=== PATIENT | male | born 1960 | race Caucasian/White ===

== ENCOUNTER → 2019-06-02 | Outpatient (CLI) | payer OTHER ==
--- NOTE | 2019-06-02 10:57 | MR ---
EXAMINATION TYPE: MR lumbar spine wo con DATE OF EXAM: 06/02/2019 COMPARISON: NONE HISTORY: Back pain and hip pain, rt side TECHNIQUE: T1 and T2 axial and sagittal images of the lumbar spine are submitted. FINDINGS: There is no abnormal signal seen within the visualized spinal cord or paraspinal soft tissu es. At L1-2 there is disc desiccation with no focal herniation or canal stenosis. Mild hypertrophic walden es in the facets. At L2-3 there is severe degenerative disc disease with posterior spondylosis and broad-based disc bul ging greater paracentrally to the left resulting in moderate compression of the thecal sac and centra l canal stenosis. Hypertrophic change of the facets and ligamentum flavum contribute and there is mod erate left-sided foraminal encroachment and mild right-sided foraminal encroachment. At L3-4 there is degenerative disc disease with broad-based disc protrusion with moderate compression of thecal sac. Hypertrophic change of the facets and ligamentum flavum noted with moderate canal jluio nosis and bilateral foraminal encroachment. At L4-5 there is degenerative disc disease with a slight anterolisthesis of L4 relative to L5. Advanc ed facet arthropathy seen and there is broad-based disc protrusion or herniation greater paracentrall y to the right. Hypertrophy of the facets and ligamentum flavum contribute to severe canal stenosis a nd bilateral foraminal encroachment. At L5-S1 there is severe degenerative disc disease with facet arthropathy. There is some mild bilater al foraminal encroachment with hypertrophic changes. No focal disc herniation or canal stenosis. IMPRESSION: 1. Multilevel degenerative disc disease and facet arthropathy. At levels L2-3, L3-4 and L4-5 disc pro trusions in association with the hypertrophic changes result in varying degrees of canal stenosis and foraminal encroachment as discussed above.
--- NOTE | 2019-06-02 14:08 | MR ---
MR pelvis HISTORY: Other specified disorders of bone, back pain and hip pain Multiplanar multisequence imaging obtained through the pelvis No plain film submitted for correlation. Bone marrow signal is maintained although there is a small focus of intermediate signal on T1, increa sed signal on T2-weighted sequences within the left femoral neck possibly representing a small geode. Symmetric hip joint fluid is present bilaterally. No free fluid noted within the pelvis. Degenerativ e disc changes are noted incidentally in the lower lumbar spine. Urinary bladder unremarkable as seen . Mild prominence of the prostate gland. No evident pelvic adenopathy. Diverticular change noted in t he sigmoid colon. Some minimal fluid signal present at the level of the greater trochanter laterally could represent some trochanteric bursitis. IMPRESSION: Degenerative disc disease in the lumbar spine. Additional nonspecific findings above.
== END | disposition home or self-care (01) ==
LOC: RADMRIMAIN 08:03
PROVIDERS: ATTEND Physical Medicine & Rehabilitation
DX: M48.061 Spinal stenosis, lumbar region without neurogenic claudication (principal); M51.26 Other intervertebral disc displacement, lumbar region; M51.36 Other intervertebral disc degeneration, lumbar region; M46.96 Unspecified inflammatory spondylopathy, lumbar region; M25.559 Pain in unspecified hip
CPT/HCPCS: 72148; 72195